=== PATIENT | female | born 1975 | race Caucasian/White ===

== ENCOUNTER → 2024-07-18 07:36 | Outpatient (REF) | payer OTHER, SELFPAY | LOC: RAD 07:36 | PROVIDERS: ATTENDING PHYSICIAN Nurse Practitioner Family | DX: Z12.39 Encounter for other screening for malignant neoplasm of breast (principal); M25.561 Pain in right knee; M25.562 Pain in left knee; M25.551 Pain in right hip | CPT/HCPCS: 73502; 73564 ==

== ENCOUNTER → 2024-10-25 08:44 | Outpatient (REF) | payer OTHER, SELFPAY | LOC: WDC 08:44 | PROVIDERS: ATTENDING PHYSICIAN Nurse Practitioner Family | DX: R92.2 Inconclusive mammogram (principal) | CPT/HCPCS: 76641 ==